=== PATIENT | female | born 1985 ===

== ENCOUNTER → 2017-10-29 | Outpatient (REF) | payer SELFPAY ==
[~2017-10-29] MED LIST: ACE3 PO; IBU800 PO; IBUP600T22 PO; IBUP800T37 PO; OXYC-865 PO; PENI-24 PO
== END ==
LOC: ZZSENDIN 12:00
PROVIDERS: ATTEND Surgery
DX: L60.8 Other nail disorders (principal)
CPT/HCPCS: 88305; 88344